=== PATIENT | male | born 1980 | race Hispanic/Latino ===

== ENCOUNTER 2017-08-28 18:42 | Emergency (ER) | payer MEDICARE, OTHER ==
[~2017-08-28 18:42] MED LIST: ASPI-1197 PO; CARV12.511 PO; LISI1TAB11 PO; METF-805 PO; PRED20TA3 PO
[2017-08-28] MEDS ORDERED: SODIUM CHLORIDE 0.9% 1000ML 1,000 ML IV ONE (19:01)
[2017-08-28] MEDS ORDERED: ACETAMINOPHEN EXTRA STRENGTH 500 MG TABLET ONE (19:01)
[2017-08-28 19:25] LABS: BASOPHILS % (AUTO) 0.5 % (0.0-5.0); EOSINOPHILS % (AUTO) 2.8 % (0.0-8.0); LYMPHOCYTES % (AUTO) 12.8 % (21.0-51.0); MEAN CORPUSCULAR HEMOGLOBIN 27.2 pg (27.0-33.0); MEAN CORPUSCULAR HGB CONC 34.2 g/dL (32.0-36.0); MEAN CORPUSCULAR VOLUME 79.6 fL (79-99); MONOCYTES % (AUTO) 12.5 % (3.0-13.0); NEUTROPHILS % (AUTO) 71.4 % (40.0-77.0); PLATELET COUNT (AUTO) 177 K/uL (130-400); RED BLOOD CELL COUNT(AUTO) 5.16 MIL/uL (4.50-6.20); RED CELL DISTRIBUTION WIDTH 14.1 % (11.0-15.5); WHITE BLOOD COUNT (AUTO) 12.8 K/uL (4.8-10.8)
[2017-08-28 20:01] LABS: APPEARANCE,URINE Clear (CLEAR); BILIRUBIN,URINE Negative (NEGATIVE); COLOR,URINE Yellow (YELLOW); GLUCOSE, URINE (UA) 250 mg/dL (NEGATIVE); KETONES,URINE Negative (NEGATIVE); LEUKOCYTE ESTERASE ,URINE Negative (NEGATIVE); NITRATE,URINE Negative (NEGATIVE); OCCULT BLOOD,URINE Negative (NEGATIVE); PH,URINE 5.5 (5.0-8.0); PROTEIN,URINE Negative (NEGATIVE)
[2017-08-28 20:06] LABS: CREATININE 1.3 mg/dL (0.5-1.5); POTASSIUM 3.7 mmol/L (3.5-5.1)
[2017-08-28 20:11] LABS: ALBUMIN 3.3 g/dL (3.5-5.0); BILIRUBIN,TOTAL 0.4 mg/dL (0.2-1.0); TOTAL PROTEIN, SERUM 7.6 g/dL (6.0-8.3)
[2017-08-28 20:14] LABS: BACTERIA,URINE Rare /HPF (None Seen); RBC,URINE None Seen /HPF (0-1); SQUAMOUS EPITHELIAL CELL,UR None Seen /HPF (0-2); WBC,URINE None Seen /HPF (0-1)
[2017-08-28 20:16] LABS: RAPID GROUP A STREP NEGATIVE (NEGATIVE)
[2017-08-28] MEDS ORDERED: BENZONATATE 100 MG CAPSULE PO ONE (21:35)
[2017-08-28] MEDS ORDERED: CEFTRIAXONE SODIUM 1 GM ONE (21:35)
== END 2017-08-28 22:00 | disposition home or self-care (01) ==
LOC: EDH 18:42
DX: J18.9 Pneumonia, unspecified organism (principal); I42.9 Cardiomyopathy, unspecified; I25.10 Atherosclerotic heart disease of native coronary artery without angina pectoris; I11.0 Hypertensive heart disease with heart failure; I50.9 Heart failure, unspecified; Z98.890 Other specified postprocedural states
CPT/HCPCS: 36415; 71046; 80053; 81001; 82550; 83605 ×2; 83880; 84484; 85025; 87040 ×2; 87804 ×2; 87880; 96374; 99285; A4218; J0696; J7030; 96361